=== PATIENT | female | born 1940 | race Caucasian/White ===

== ENCOUNTER 2023-07-17 11:03 | Inpatient (IN) | payer MEDICARE, OTHER ==
[~2023-07-17] VITALS: Ht 157.5 cm; Wt 49.0 kg
[2023-07-17] MEDS ORDERED: MAG HYDROX/AL HYDROX/SIMETH 30 ML UDC PO PRN (12:30)
[2023-07-17] MEDS ORDERED: ACETAMINOPHEN 325 MG TABLET PO PRN (12:30)
[2023-07-17] MEDS ORDERED: LORAZEPAM 0.5 MG TABLET PO PRN (12:30)
[2023-07-17] MEDS ORDERED: MAGNESIUM HYDROXIDE 30 ML UDC PO PRN (12:30)
[2023-07-17 12:33] VITALS: BP 114/66; TEMP 97.9; O2SAT 98
[2023-07-17] MEDS: BLOOD SUGAR DIAGNOSTIC 1 EACH STRIP IN ONE (13:11)
[2023-07-17 16:00] VITALS: BP 112/64; TEMP 98; O2SAT 97
[2023-07-17 20:00] VITALS: BP 116/75; TEMP 98.1; O2SAT 98
[2023-07-17] MEDS: MIRTAZAPINE 15 MG TABLET PO SCH (22:10)
[2023-07-18 08:00] VITALS: BP 108/57; TEMP 98; O2SAT 96
[2023-07-18 08:01] LABS: ALBUMIN 3.1 g/dL (3.4-5.0); BILIRUBIN,TOTAL 0.7 mg/dL (0.2-1.0); CALCIUM, SERUM 8.7 mg/dL (8.5-10.1); CREATININE 0.9 mg/dL (0.6-1.3); MAGNESIUM 1.9 mg/dL (1.8-2.4); TOTAL PROTEIN, SERUM 6.7 g/dL (6.4-8.2)
[2023-07-18 09:14] LABS: THYROID STIMULATING HORMONE 1.267 uIU/mL (0.358-3.74)
[2023-07-18 16:00] VITALS: BP 108/76; TEMP 98.8; O2SAT 98
[2023-07-18 21:31] VITALS: BP 96/61; TEMP 98.2; O2SAT 95
[2023-07-18] MEDS: ATORVASTATIN 10 MG TABLET PO SCH (21:52)
[2023-07-19 08:00] VITALS: BP 100/71; TEMP 98.2; O2SAT 97
[2023-07-19 16:00] VITALS: BP 100/58; TEMP 97.5; O2SAT 100
[2023-07-20 08:00] VITALS: BP 99/62; TEMP 98.8; O2SAT 100
[2023-07-20 16:00] VITALS: BP 105/66; TEMP 98.2; O2SAT 98
[2023-07-20 20:46] VITALS: BP 102/63; TEMP 98; O2SAT 98
[2023-07-20] MEDS: TEMAZEPAM 7.5 MG CAPSULE PO PRN (20:58)
[2023-07-21 08:00] VITALS: BP 107/61; TEMP 97.9; O2SAT 98
[2023-07-21 16:00] VITALS: BP 104/67; TEMP 98.7; O2SAT 99
[2023-07-21 21:03] VITALS: BP 106/87; TEMP 98.5; O2SAT 98
[2023-07-22 08:00] VITALS: BP 108/71; TEMP 98.1; O2SAT 100
[2023-07-22 15:38] LABS: CALCIUM, SERUM 8.2 mg/dL (8.5-10.1); CREATININE 0.9 mg/dL (0.6-1.3); POTASSIUM 3.9 mmol/L (3.5-5.1)
[2023-07-22 16:00] VITALS: BP 102/68; TEMP 98.7; O2SAT 98
[2023-07-22 21:29] VITALS: BP 104/64; TEMP 98.2; O2SAT 96
[2023-07-23 08:00] VITALS: BP 100/57; TEMP 98.6; O2SAT 99
[2023-07-23 08:10] LABS: FOLIC ACID 11.5 ng/mL (>3.0)
[2023-07-23 16:00] VITALS: BP 100/60; TEMP 98.1; O2SAT 98
[2023-07-23 21:02] VITALS: BP 104/59; TEMP 97.9; O2SAT 97
[2023-07-24 08:00] VITALS: BP 107/65; TEMP 98.3; O2SAT 97
== END 2023-07-24 14:15 | DRG 881 ==
LOC: GPS 11:42
PROVIDERS: ADMIT Psychiatry & Neurology Psychosomatic Medicine; ATTEND Nurse Practitioner Family
DX: F32.A Depression, unspecified (principal); E44.1 Mild protein-calorie malnutrition; R45.851 Suicidal ideations; Z68.1 Body mass index [BMI] 19.9 or less, adult; F03.93 Unspecified dementia, unspecified severity, with mood disturbance; E78.5 Hyperlipidemia, unspecified; R62.7 Adult failure to thrive; E88.09 Other disorders of plasma-protein metabolism, not elsewhere classified; Z85.43 Personal history of malignant neoplasm of ovary; Z88.0 Allergy status to penicillin; R73.9 Hyperglycemia, unspecified; Z20.822 Contact with and (suspected) exposure to COVID-19; Z90.710 Acquired absence of both cervix and uterus; Z73.6 Limitation of activities due to disability
CPT/HCPCS: 36415; 70450-TC; 80048-TC; 80053-TC; 80061-TC; 82607-TC; 82962-TC; 83735-TC; 83921; 84443-TC; 87081-TC